=== PATIENT | male | born 1965 | race Caucasian/White ===

== ENCOUNTER 2019-08-02 11:52 | Inpatient (IN) | payer OTHER ==
[~2019-08-02] VITALS: Ht 180.3 cm; Wt 75.3 kg
[2019-08-02 15:04] VITALS: BP 146/80
--- NOTE | 2019-08-02 15:05 | NUR ---
53 YEAR OLD MALE ARRIVES VIA AMBULANCE FROM [facility] IN [facility] WHERE HE HAS BEEN INPT SINCE 07/29 FOR [place] LE CELLULITIS AND HTN. PT REPORTED TO LIVE WITH HIS 95 YEAR OLD FATHER WHOSE HEALTH IS POOR. PER NURSING REPORT PT NOT EATING AT HOME,NOT TAKING MEDS,INCREASED IN HALLUCINATIONS AND WALKING AROUND HOUSE NAKED. DURING ADMIT INTERVIEW IS PACING BACK AND FORTH RAPIDLY IN ROOM-TALKING SOFTLY TO SELF AND DOES STATE "I'M HALLUCINATING-I HEAR VOICES" DENIES PAIN/DISCOMFORT. DENIES SI/SH/HI/. RIGHT LE ASSESSEWD AND IS NOT WARM TO TOUCH OR RED-PURPLISH COLORED SKIN AND 2 PLUS PEDAL EDEMA. PT DOES RESPOND TO QUESTIONS ASKED BUT MANY TIMES WILL STATE "I DON'T KNOW OR I CAN'T REMEMBER" VS OBTAINED. ORIENTED TO ROOM AND UNIT. FOOD/FLUIDS OFFERED/ACCEPTED.
[2019-08-02 20:15] VITALS: BP 135/83
[2019-08-02 20:27] VITALS: BP 135/83
--- NOTE | 2019-08-03 00:03 | NUR ---
PATIENT HAS BEEN IN ROOM MOST OF NIGHT. HE DID COME OUT FOR ICE CREAM FOR HS SNACK. HE HAS BEEN CALM BUT A LITTLE RESTLESS AND PACES IN HIS ROOM. PATIENT DENIES PAIN. NO SI/HI NOTED. NO HALLUCINATIONS OR DELUSIONS NOTED TONIGHT. HE IS CALM AND COOPERATIVE. YELLOW NONSKID SOCKS PLACED ON PATIENT. HE WANTS TO SLEEP IN HIS CLOTHES AND REFUSED GOWN AND SCRUB PANTS. HE IS CONTINENT. BED IN LOW POSITION. PATIENT SLEEPING AT THIS TIME.
--- NOTE | 2019-08-03 08:42 | NUR ---
PT IN DINING ROOM EATING BREAKFAST. PT TOOK MEDS THIS AM WITHOUT ANY ISSUES.
[2019-08-03 08:50] VITALS: BP 177/95
[2019-08-03 09:40] VITALS: BP 177/95
--- NOTE | 2019-08-03 10:30 | NUR ---
PT IN ROOM PACING, ASKED IF HE WAS OK AND NEEDED ANY WATER, PT REFUSED MORE WATER AT THIS TIME.
--- NOTE | 2019-08-03 11:13 | NUR ---
SW called emergency contact and they provided number for pt's dad Danielito Sr. [phone]. Sw completed the intake assessment and TP. Pt's dad stated that they live togther and have for years. He gets housekeeping services every 2 weeks and family helps with meals and transportation. pt does not drive, and is disabled. Pt will need extra services from the [facility], including case management. Dad reported that there is a DEVIL TENDER with [employer].
--- NOTE | 2019-08-03 12:04 | NUR ---
RD consult for weight change. Admit to H unit with hallucinations. Pt had not been eating at home but is now accepting of food and fluids. Spoke with pt about appetite, said it has been fine but he was not hungry for lunch and is tired. Agreed to go to lunch and try eating. Pt reports usual weight of 173, fairly consistent with recorded wt of 175.
--- NOTE | 2019-08-03 14:57 | NUR ---
Sw spoke with intake at the [facility] center [phone] ([phone]. and recomended extensive CM and therapy for d/c needs.
--- NOTE | 2019-08-03 15:57 | NUR ---
PT SITTING OUT IN DINING ROOM. PT TALKING TO SELF. PT STATED HE HERE VOICES AND THEY SAY THEY TELL HIM HE IS EVIL. THIS TRACK ANNOUNCER ASKED WHAT HE SAYS BACK, HE SAYS HE TELLS THEM OFF AND HE GETS IN TROUBLE.
[2019-08-03 19:50] VITALS: BP 137/86
[2019-08-03 20:45] VITALS: BP 137/86
--- NOTE | 2019-08-03 22:13 | NUR ---
PATIENT HAS BEEN IN HIS ROOM TONIGHT AND UP PACING BACK AND FORTH AND TALKING SOFTLY TO HIMSELF. WHEN ASKED WHO HE IS SPEAKING TO, HE RESPONDED, "GOD". I ASKED IF HE IS HEARING VOICES TALKING TO HIM RIGHT NOW. HE STATES THAT THE VOICES ARE SAYING HE IS EVIL. WE TALKED ABOUT HOW TO RESPOND BACK TO THOSE MESSAGES AND TRIED TO DISCUSS WHAT IS REALITY. PATIENT SAYS TALKING ABOUT WAYS TO DEAL WITH THE VOICES HAS HELPED. PT TOOK HIS MEDS WHOLE. DENIES PAIN. NO BM SO FAR TODAY.
--- NOTE | 2019-08-03 22:25 | NUR ---
PATIENT UP PACING ROOM AND TALKING TO HIMSELF AGAIN. HE STATES THAT HIS ROOM MATE'S LIFE IS IN JEPORADY BECAUSE THERE ARE BOMBS ALL AROUND. HE WILL NOT GET IN HIS OWN BED D/T THIS. HE STATES HE SEE'S GOD UP ABOVE AND IS TALKING WITH HIM. HE CAME OUT OF ROOM TO CHECK UNIT MAIN DOORS WHICH WERE LOCKED. I TRIED TO REASSURE HIM AND LET HIM KNOW HE IS SAFE AND THAT NO ONE IS ALLOWED ON OR OFF THE UNIT UNLESS THEY BELONG HERE. PT KEEPS WALKING BACK AND FORTH TO THE DOORS ON THE UNIT AND STANDING AROUND THEM. CALL PLACED TO [facility] AND ORDERS GIVEN FOR ZYPREXA 10MG PO AND/OR IM Q4HR PRN ANXIETY/AGGITATION, AND TRAZADONE 50MG PO AT HS PRN FOR INSOMNIA. MAY REPEAT IN ONE HOUR IF STILL AWAKE. ZYPREXA 10MG PO GIVEN AND TRAZADONE 50MG PO GIVEN. PATIENT WAS CHEEKING HIS MEDS AND KEPT TAKING SMALL SIPS. WAITED WITH PATIENT AND KEPT GIVING HIM SMALL SIPS TILL THEY WERE DOWN. PT IS DROOLING A LITTLE TONIGHT TOO. MONITORING HIS SWALLOWING. PT SITTING UP IN DINING ROOM WITH HIS WATER NOW.
--- NOTE | 2019-08-03 23:23 | NUR ---
ASSISTED PATIENT BACK TO BED. HE'S AFRAID TO SLEEP D/T HE THINKS BOMBS ARE ALL AROUND. FINALLY GOT HIM TO LAY DOWN IN BED SO I COULD LOTION HIS LEGS AND AND THERAPEUTIC MASSAGE ON LOWER LEGS. SOON I LEFT ROOM, PATIENT IS BACK UP AND WALKING THE HALLS. WILL CONTINUE TO MONITOR.
--- NOTE | 2019-08-03 23:34 | NUR ---
PATIENT UNSTEADY ON FEET FROM TRAZADONE AND ZYPREXA. PLACED PATIENT IN A RECLINER WITH PILLOW IN BLANKET AND INCLINED POSITION. PATIENT THANKED ME. SOON I LEFT DINING ROOM PT SAT UP IN RECLINER. HE IS FIDGETING WITH BLANKET. WILL TRY AND GIVE HIM ANOTHER TRAZADONE 50MG IN A FEW MINUTES IF HE WILL TAKE IT. PATIENT IS PARANOID AND STILL THINKING BOMBS ARE ALL AROUND HIS ROOM. HE KEEPS WALKING TO THE EXIT DOORS WHEN HE IS UP PACING. HE LOOKS CALM AND TALKS SOFTLY UNDER HIS BREATH. HE IS NOT COMBATIVE OR AGGRESSIVE.
--- NOTE | 2019-08-04 01:21 | NUR ---
PATIENT HAD TO BE ASSISTED BACK TO RECLINER D/T TRYING TO WALK AND UNSTEADY ON HIS FEET. ORDER FOR HALDOL 5MG IM ONE TIME FROM [facility] OBTAINED AND GIVEN. PT HAD TO BE REMINDED TO SIT IN RECLINER AND NOT GET UP. HE IS SITTING IN IT AND SLEEPING OFF AND ON FOR LAST HOUR. PT NOT WANTING TO GO BACK TO HIS ROOM AT THIS POINT. PATIENT APPEARS RELAXED AND COMFORTABLE. DENIES PAIN. CONTINUING TO MONITOR.
--- NOTE | 2019-08-04 06:34 | NUR ---
PATIENT SLEEPING SOUNDLY IN RECLINER IN DAYROOM STILL AT THIS TIME. PT APPEARS COMFORTABLE AND NO DISTRESS. CONTINUING TO MONITOR FOR SAFETY.
[2019-08-04 09:09] VITALS: BP 152/83
--- NOTE | 2019-08-04 17:00 | NUR ---
0700 ASSUMED CARE OF PATIENT. PATIENT SITTING UP IN CHAIR IN DAYROOM. 0730 PATIENT DENIES NEEDS. NOTICED TREMORS IN HANDS THAT INCREASE WHEN TALKING TO PATIENT. PATIENT COMMUNICATING WELL WITH PEERS. 0915 ASSESSMENT COMPLETED AT THIS TIME PATIENT COOPERATIVE AND EASILY REDIRECTED. PATIENT PACING IN ROOM, NO SI/HI OR AVH, PATIENT STATES NO HALLUCINATIONS TODAY. NO C/O PAIN. MEDICATIONS TAKEN WHOLE WITHOUT DIFFICULTY. WILL CONTINUE TO MONITOR.
--- NOTE | 2019-08-04 18:20 | NUR ---
PATIENT RESTING IN BED. RLE NOTED WITH CELLULITIS AND SWELLING PATIENT STATES "I HAVE HAD IT MANY YEARS". TREMORS TO HANDS NOTED. NO HALLUCINATIONS TODAY.
[2019-08-04 19:48] VITALS: BP 191/165
--- NOTE | 2019-08-05 05:31 | NUR ---
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 HE WAS SITTING QUIETLY IN DAYROOM AT THAT TIME. COOPERATIVE WITH MEDS AND ASSESSMENT PROCESS. LATER NOTED TO BE LYING IN BED TALKING TO SELF. STATED HE IS HEARING VOICES AT THAT TIME TELLING HIM HE'S EVIL. STATES THERE IS SOME RELIEF FRON VOICES WHEN HE IS AROUND MORE PEOPLE. NO PHYSICAL C/O. NO APPARENT DISTRESS. WILL CONTINUE TO MONITOR
[2019-08-05 09:25] VITALS: BP 159/97
[2019-08-05 11:30] VITALS: BP 159/97
--- NOTE | 2019-08-05 12:48 | NUR ---
ASSUMED CARE AT 0700 THIS MORNING. PT. UP FOR MEALS, LIKES TO REST IN HIS ROOM BETWEEN MEALS. HE STATES HE IS HEARING VOICES, SEEING THINGS/PEOPLE, BUT DENIES AVH. HE IS PLEASANT AND COOPERATIVE. HE STATED HE DOES NOT THINK HE SHOULD TAKE A STOOL SOFTNER OR LAXATIVE BECAUSE "I DON'T WANT IT RUNNY". AFFECT SAD, DEPRESSED. CAN SEE HIM TALKING TO THE VOICES. DENIES BEING ABLE TO SLEEP MUCH (HE SLEPT 4.4 HOURS LAST NOC). TOOK HIS MEDICATIONS WITHOUT DIFFICULTY.
--- NOTE | 2019-08-05 14:42 | NUR ---
SW completed a chart review and pt is still struggling with his hallucaintaions but making some positive gains. D/C is still guarded about going home with his aging father. Jorge A called and left a VM with Danielito espinoza.
[2019-08-05 19:43] VITALS: BP 130/50
--- NOTE | 2019-08-06 04:46 | NUR ---
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 HE WAS SITTING IN DAYROOM WITH PEERS. APPEARS TO BE QUITE INTERNALLY PREOCCUPIED. AFFECT FLAT, MOOD DEPRESSED. STATES HE HEARS VOICES TELLING HIM HE IS IN HELL AND SEES PHANTOMS AND DEMONS.HAS BEEN PACING SOME DURING THE NIGHT. WHEN HE DOES SIT STILL, IS TALKING ANGRILY TO A/H. SLEPT VERY LITTLE, IF ANY. RECIEVED TRAZADONE 100MG X2 WITH NO APPARENT EFFECT.TOOK MEDS WITHOUT DIFFICULTY. COOPERATIVE WITH ASSESSMENT PROCESS. QUITE TIAGO WHEN DESCRIBING SX OF PSYCHOSIS. WILL CONTINUE TO MONITOR
[2019-08-06 09:50] VITALS: BP 169/94
[2019-08-06 13:21] VITALS: BP 169/94
--- NOTE | 2019-08-06 13:34 | NUR ---
ASSUMED CARE AT 0700 THIS MORNING. PT. SECLUSIVE IN HIS ROOM. HE COMES OUT FOR MEALS AND GROUPS BUT IN HIS ROOM AT OTHER TIMES. HE IS PLEASANT TO STAFF. HE STATES HE CONTINUES TO HAVE AVH. HE DENIES THAT THE VOICES HAVE A VIOLENT TONE BUT ARE FRIENDLY AT THIS TIME SO HE DOES NOT MIND THEM. THE TOOK HIS MEDICATION WITHOUT DIFFICULTY. THIS MIXER OPERATOR STAYED IN THE VACINITY THE PT. AFTER MEDS WERE GIVEN SO HE COULD NOT CHEEK HIS MEDICATIONS. HE NEEDS A SHOWER BUT REFUSES TO DO SO WHEN STAFF ATTEMPTS TO ASK HIM TO TAKE ONE. HE IS VERY RESISTIVE WHEN APPROACHED BY STAFF.
[2019-08-06 19:30] VITALS: BP 147/83
--- NOTE | 2019-08-06 23:23 | NUR ---
Care assumed of patient at 1915: Patient seated in dayroom at start of shift. Patient presents with blunted affect. Alert and oriented x3, disoriented on current time. Did know to look at the board to read what the date is. Patient has tremors to lower jaw/chin area but not to the bilateral upper and lower extremities. Patient denies pain or discomfort. Denies SI/HI. Does report that he is hearing voices who he calls "the devil". Patient observed sitting and mumbling to self. Not able to distinguish what he is saying. When approached, patient states he is telling "him" to go away. Patient took HS medication whole. Appears that patient has some difficulty swallowing his medications or is tucking them in his cheek. Patient was able to swallow them with several drinks of water and encouragement. Patient isolated self and appears withdrawn. Answers simple yes/no questions appropriately. Patient started to appear tired and was falling asleep in his chair. Patient encouraged and walked to his room to go to bed. Patient was able to fall to sleep rather quickly and has been resting quietly.
--- NOTE | 2019-08-07 08:22 | NUR ---
PT SITTING OUT IN DINING ROOM FOR BREAKFAST. PT SEEMS SLEEPY, AWAKEN WITH VERBAL STIMULI. PT STATED HE FEELS BETTER, NOT HEARING VOICES AT THIS TIME. NO TREMORS NOTED AT THIS TIME OR SIGNS OF ANXIETY.
[2019-08-07 08:40] VITALS: BP 142/84
[2019-08-07 09:12] VITALS: BP 142/84
--- NOTE | 2019-08-07 13:06 | NUR ---
SW called pt's DPOA and left a VM. SW completed chart review and pt is making so gains. Will still plan for a d/c next week.
--- NOTE | 2019-08-07 18:00 | NUR ---
PT HAS HAD A GOOD DAY. DID NOT NOTICE ANY ISSUES WITH PT TALKING TO SELF. PT HAS ATTENED GROUPS TODAY.
[2019-08-07 20:54] VITALS: BP 183/92
[2019-08-07 22:06] VITALS: BP 150/90
--- NOTE | 2019-08-07 22:38 | NUR ---
1850 RESUMMED CARE FROM DAY SHIFT, PATIENT WAS IN ROOM SLEEPING AT START OF SHIFT. PATIENT TOOK MEDICATION WITHOUT INCIDENCE, PATIENT HAS TREMORS HANDS AND LEGS. PATIENT WENT BACK TO SLEEP IN ROOM, WILL CONTINUE TO MONITOR PATIENT FOR BEHAVIORS AND SAFETY.
[2019-08-08 07:40] VITALS: BP 189/91
[2019-08-08 08:30] VITALS: BP 189/91
--- NOTE | 2019-08-08 09:14 | NUR ---
PT TOOK MEDS THIS AM WITHOUT ANY ISSUES. PT MUMBLING TO SELF SOFTLY, PT DENIES ANY PAIN. PT LUNGS CLEAR. PT UP AD CARMEL.
--- NOTE | 2019-08-08 12:39 | NUR ---
Date of Admission: 08/02/19 Date of Activity Therapy Assessment:08/04/19 Activity Goal:Time management and leisure awareness Initial Goal: Two RT groups per day Weekly progress towards goal:Did not achieve Group participation level: Minimal/Passive Behaviors observed: Pt has been seen responding to internal stimuli. Pt has been mumbling and talking to self. Pt often sits passively in groups but does participate at times. Pt has a flat affect and has little interaction with peers and staff. Sometimes seen sleeping during groups. Plan: No change towards goal
--- NOTE | 2019-08-08 15:07 | NUR ---
Jorge A spoke with pt's father and reported that d/c would be coming up wthis week and that pt will need to go the [facility] for increased services. JORGE A also educated jamaal espinoza that pt will need increased cares and supervision and that guardianship should be considered sooner than too late. Jamaal espinoza seemed to understand and will be pursuing this.Jorge A then spoke with the pt after group and disucssed the need for him to ask for and follow up with his appt at the [facility] to avoid readmission to the hospital and he admitted that he would be compliant with the d/c recommendations and that he will need someone to help make decisions when his dad cannot.
--- NOTE | 2019-08-08 18:39 | NUR ---
PT SITTING OUT IN DINNING ROOM. PT ATE WELL FOR DINNER. PT DOES HAVE SOME MOVEMENTS TO LOWER LIP.
[2019-08-08 19:56] VITALS: BP 171/101
[2019-08-08 21:00] VITALS: BP 164/86
--- NOTE | 2019-08-09 02:10 | NUR ---
PATIENT HAS BEEN CALM AND COOPERATIVE TONIGHT. HE DENIES SI/HI/AVH. HE SAT OUT IN DINING ROOM AT A TABLE WITH HIS ROOMMATE AND HAD ICECREAM FOR HIS HS SNACK BEFORE RETIRING TO BED. HE AMBULATES WELL ON HIS OWN. HIS TREMORS IN HIS HANDS ARE VERY SLIGHT TONIGHT. HE APPEARS CALM AND RELAXED. HE IS INDEPENDENT WITH USING THE RESTROOM. PATIENT STATES HE HAD BM TODAY. PATIENT HAS BEEN SLEEPING SINCE 0. BED IN LOW POSITION AND MONITORING HIM FOR SAFETY.
[2019-08-09 09:09] VITALS: BP 166/98
[2019-08-09 10:35] VITALS: BP 96/49
--- NOTE | 2019-08-09 11:33 | NUR ---
1130 RESUMMED CARE FROM OVERNIGHT SHIFT AT 0648, PATIENT IN DAY ROOM QUIET AND ISOLATIVE. PATIENT ATE BREAKFAST AND TOOK MEDICATION WITHOUT INCIDENCE. PATIENT ENCOURAGED TO PARTICIPATE MORE AND TRY TO INTERACT MORE. PATIENT COOPERATIVE CALM DENIES SI/HI AT PRESENT. WILL CONTINUE TO MONITOR PATIENT FOR SAFETY AND BEHAVIORS.
[2019-08-09 14:16] LABS: HEMATOCRIT 45.3 % (42.0-52.0); MCHC 33.2 g/dL (28.0-37.0); MCV 90.3 fL (80.0-100.0); RBC 5.01 mil/uL (4.50-6.00); RDW 13.5 % (10.5-14.5); WBC 6.6 thou/uL (4.0-11.0)
[2019-08-09 14:30] LABS: CALCIUM 8.8 mg/dL (8.5-10.1); CREATININE 1.2 mg/dL (0.7-1.3); POTASSIUM 4.1 mmol/L (3.5-5.1); TOTAL BILIRUBIN 0.5 mg/dL (<0.1-1.0); TOTAL PROTEIN 7.8 g/dL (6.4-8.2)
[2019-08-09 20:25] VITALS: BP 176/101
--- NOTE | 2019-08-10 04:29 | NUR ---
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 HE WAS SITTING IN DAYROOM WITH PEERS WITH NO INTERACTION. DENIES PSYCHOSIS AT THIS TIME, BUT IS NOTED RESPONDING TO INTERNAL STIMULI, SPEAKING TO SELF. AFFECT BLUNTED, MOOD DEPRESSED. PLEASANT AND COOPERATIVE WITH ASSESSMENT PROCESS AND MEDS. NO APPARENT PHYSICAL DISTRESS. NO C/O. WILL CONTINUE TO MONITOR
[2019-08-10 05:26] VITALS: BP 139/77
--- NOTE | 2019-08-10 05:28 | NUR ---
PATIENT BP WAS 174/96 DURING THE EVENING SHIFT. RECENT FOLLOW UP CHECK WAS 139/77 FOLLOWING 1X DOSE OF CLONIDINE 0.1MG ORDERED BY DR DANIELS
[2019-08-10 07:35] VITALS: BP 149/88
[2019-08-10 08:34] VITALS: BP 138/83
--- NOTE | 2019-08-10 08:44 | NUR ---
RANDALL called pt's AGNIESZKA Esteves sr and reported to him that d/c was today and that we would be transporting pt by cab to home at 2pm. RANDALL faxed the d/c packet to the [facility] [phone].
[2019-08-10] MEDS ORDERED: COLACE 100 MG100 MG PO (11:16)
[2019-08-10] MEDS ORDERED: SEROQUEL 100 M100 M1 PO ×2 (11:16→12:16)
[2019-08-10] MEDS ORDERED: BENZTROPINE MES1 MG PO (11:16)
[2019-08-10] MEDS ORDERED: TRAZODONE HCL100 MG PO (11:16)
[2019-08-10] MEDS ORDERED: REQUIP 1 MG TABL1 M1 PO (11:16)
[2019-08-10 11:45] VITALS: BP 138/83
--- NOTE | 2019-08-10 12:02 | NUR ---
JORGE A cancelled the taxi, after spekaing with Jesse Blevins- friend listed on the face sheet. He stated that he would come and strip picker this pt today at 3pm and would be bringing Danielito ELIZONDO. Jorge A reported this to nursing and Dr Sanchez.
[2019-08-10] MEDS ORDERED: CARDIZEM CD120 MG PO (12:12)
[2019-08-10 12:50] VITALS: BP 138/83
--- NOTE | 2019-08-10 15:36 | NUR ---
ASSUMED CARE AT 0700 THIS MORNING. PT. STABLE. HE CONTINUES TO STATE HE IS STILL HEARING VOICES BUT DENIES PROBLEMS WITH IT. HE STAYES IN HIS ROOM BETWEEN MEALS AND GROUPS. HE GOT DRESSED AND ALL HIS BELONGINGS WAS GATHERED. ALL HIS BELONGINGS WAS TAKEN, HIS SCRIPTS, DISCHARGE PAPERS, BELONGINGS WERE ALL GATHERED. PT. LEFT WITH FRIEND IN A CAR TO GO HOME.
--- NOTE | 2019-08-12 11:22 | EKG ---
[facility] [place] [address] ELECTROCARDIOGRAM REPORT Name: ROSS LOPEZ Room #: [address] [place] [address] [place] M.R.#: [id number] Admission: 08/02/19 Attend Phys: Gabriela Sanchez MD Discharge: 08/10/19 Date of : 61 Report #: [id number] THIS REPORT FOR: cc: FAM - Family physician unknown FAM - Family physician unknown Camron Nash MD ~ THIS REPORT FOR: //name// [facility] Test Date: 2019-08-09 Test Time: 16:36:04 Pat Name: ROSS LOPEZ Department: Room: [facility] A Gender: M [employer] Leasing Sales Representative: Whit SCHOFIELD : 1965 Requested By: Gabriela Sanchez Order Number: [id number] MD: Camron Nash Measurements Intervals [place] Rate: 86 P: 53 ND: 132 QRS: 19 QRSD: 89 T: 13 QT: 357 QTc: 427 Interpretive Statements Sinus rhythm No previous ECG available for comparison Electronically Signed On 08-09-2019 16:55:27 BARREL PLATER by Camron Nash [email or web address] <ELECTRONICALLY SIGNED> By: Camron Nash MD [id number] Camron Nash MD /SHARRON
== END 2019-08-10 16:10 | disposition home or self-care (01) | DRG 885 ==
LOC: SBH
PROVIDERS: Psychiatry & Neurology Psychiatry; ADMIT Psychiatry & Neurology Psychiatry
DX: F20.9 Schizophrenia, unspecified (principal); R45.851 Suicidal ideations; I10 Essential (primary) hypertension; I87.2 Venous insufficiency (chronic) (peripheral); G31.84 Mild cognitive impairment of uncertain or unknown etiology; Z79.899 Other long term (current) drug therapy
CPT/HCPCS: 10880

== ENCOUNTER 2020-01-13 23:03 | Inpatient (IN) | payer OTHER ==
[~2020-01-13] VITALS: Ht 180.3 cm; Wt 71.3 kg
[~2020-01-13 23:03] MED LIST: BENZTROPINE MES1 MG PO; CARDIZEM CD120 MG PO; COLACE 100 MG100 MG PO; REQUIP 1 MG TABL1 M1 PO; SEROQUEL 100 M100 M1 PO; TRAZODONE HCL100 MG PO
[2020-01-14 02:25] VITALS: BP 157/106
--- NOTE | 2020-01-14 04:24 | NUR ---
Pt admitted to rm 518 B from [facility]. Pt lives at home with his aged dad. Report obtained from Lola ([facility] RN). Per Lola, pt reported that ativan which he recieved in the ER helps in silencing voices. Pt alert and oriented x4, voiced having some short term memory problems. VSS obtained. BP high, pt voiced high bp being his norm. Pt admitted with schizophrenia. Pt agreed to auditory hallucination. Voices telling him that "he is evil". Pt voiced his way of dealing with voices is to try to block them out. Pt is alert and oriented, ambulates independently. Pt agrees to having depression and occassional feeling of hopelessness. Pt voiced being previously admitted to [facility] in August 2019. Tremors noted. Pt has edema to BLE, right > left. Pt also has discoloration to RLL. Pt voiced lossing about 30lb since the last 3 months, voicing that he sometimes "forgets to eat". Pt admits to falling x1 in the past 3 months, slipped coming off of his bed. Pt however, does not flag as a fall risk at this time. Pt does not have a DPOA. Consents signed by pt. Dontrell NUNEZ contacted for admission orders. Home meds restarted by dontrell NUNEZ. Pt currently in bed sleeping. Will continue to monitor.
[2020-01-14 07:40] VITALS: BP 169/106
[2020-01-14 10:02] VITALS: BP 169/106
--- NOTE | 2020-01-14 15:47 | NUR ---
PATIENT WAS UP SITTING IN DAYROOM WHEN CARE ASSUMED. HE IS ALERT, AND ORIENTED X 3-4, ABLE TO MAKE NEED KNOWN. PATIENT AMBULATES WITH STEADY GAIT. PATIENT TOOK MORNING MEDICATION WHOLE WITHOUT DIFFICULTY. PATIENT IS EATING MEALS, AND DRINKING FLUID WELL. PATIENT DENIES SUICIDAL/HOMICIDAL IDEATION, HE DENIES ANXIETY, DEPRESSION RATED 5/10. PATIENT STATES HIS PROBLEM IS "THE VOICES, TEKLLING ME TO CRY, AM AN EVIL MAN, I WILL NEVER GET TO GO HOME, NEVER SEE MY FATHER". PATIENT REDIRECTED THAT VOICES ARE NOT REAL. "I KNOW, BUT THEY ARE REALLY STRONG". PATIENT DENIES HAVING PHYSICAL PAIN. PATIENT PARTICIPATING IN GROUP THERAPY. NO SIGN ACUTE DISTRESS NOTED AT THIS TIME. AFFECT IS FLAT, AND BLUNTED, MOOD IS CALM. NO SIGN OF ACUTE DISTRESS NOTED AT THIS TIME, WILL MONITOR FOR SAFETY.
--- NOTE | 2020-01-14 16:33 | NUR ---
Sw met with pt with Dr juan and completed the intake assessment and TP. Pt will be going back to home with oupt services at the [facility]
[2020-01-14 19:30] VITALS: BP 168/96
--- NOTE | 2020-01-15 03:59 | NUR ---
Assumed care of pt @ 1900. Pt calm et cooperative with pleasant demeanor this shift. Took medications whole without difficulty. Unable to assess ambulation as pt isolated in room in bed all of shift. VSWNL. Health assessment with no abnormalities noted at present time. Denies SI/HI at present time. Currently resting in bed with eyes closed. Will continue to monitor per protocol.
[2020-01-15 07:09] LABS: CALCIUM 8.6 mg/dL (8.5-10.1); POTASSIUM 4.4 mmol/L (3.5-5.1)
[2020-01-15 08:10] VITALS: BP 155/99
[2020-01-15 09:12] VITALS: BP 181/78
--- NOTE | 2020-01-15 09:16 | NUR ---
PT SITTING IN DINING ROOM. PT HAS ARMS FOLDED ACROSS CHEST. PT HAS HYPOACTIVE BOWEL SOUNDS. PT STATED HE HAD BM TODAY. PT LUNGS CLEAR. PT TOOK MEDS WHOLE. PT STATED HE DOES HAVE AUDITORY HALLUCINATIONS THAT SAY HE IS EVIL. REASURED PT THAT HE IS NOT EVIL, TO TALK TO NURSING STAFF WITH ANY CONCERNS.
--- NOTE | 2020-01-15 16:01 | NUR ---
PT GOING OUT TO EAT MEALS. PT DIDN'T PARTICIPATE IN AFTERNOON GROUP.
[2020-01-15 21:33] VITALS: BP 152/87
--- NOTE | 2020-01-15 21:53 | H ---
[facility] [place] [address] HISTORY AND PHYSICAL Name: ROSS LOPEZ Room #: 518B-B ADM IN M.R.#: [id number] Admission: 01/14/20 Attend Phys: Kash Parker DO Discharge: Date of : 61 Report #: [id number] THIS REPORT FOR: cc: MADHURI - No family physician/PCP FAM - No family physician/PCP Kash Parker DO ~ CC: Kash DHALIWAL physician/PCP DATE OF SERVICE: 01/14/2020 INPATIENT PSYCHIATRIC EVALUATION ATTENDING PHYSICIAN: Kash Parker DO. ARCHIVES TECHNICIAN: Tristan Carter MD. REASON FOR ADMISSION: He was medically cleared in the [facility] ER in [place] for hearing voices, worsening psychosis. SOURCES OF INFORMATION: Records from [facility], past records from hospitalizations here in early 2019, interview with the patient. HISTORY OF PRESENT ILLNESS: This is a 54-year-old male who has had several psychiatric admissions earlier this year at [facility] under Dr. Sanchez, reportedly also in the interval since [place] admission he had one at [facility] in [place], [place] and now here again at [facility], he reports that he stopped going to his psychiatric appointments and cannot give me a great reason for that. He reports he hears voices telling him that are demonic in nature, one recently telling him to kill himself, unspecified method. He has a long history of schizophrenia, dating back to 1997 or so. 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 He has a friend, Jesse Sprague, who may be his DPOA, , primary care physician is Ozzie Munoz. Psychiatric provider is Quintin Gould who I did speak with at the [facility], . PAST MEDICAL HISTORY: Includes diabetes mellitus, hypertension, hyperlipidemia. Ativan helps silence the voices, but not completely. Records from the [facility]; of note, the patient had a long stay there at least 20 hours due to COVID test not being returned, need for urinalysis, urine drug screen and acute kidney injury. When he presented there late on 01/12/2020, he was a 54-year-old male, hearing voices, want some help, they are telling him to go outside naked. He has had similar presentation in 08/2019 when he was sent to [place]. He denies other complaints. [address] [address] HISTORY AND PHYSICAL Name: ROSS LOPEZ JR Room #: 518B-B ADM IN M.R.#: [id number] Admission: 01/14/20 Attend Phys: Kash Parker DO Discharge: Date of : 61 Report #: [id number] REVIEW OF SYSTEMS: From the ER: CONSTITUTIONAL: Denies fever or chills. EYES: Denies change in visual acuity. MUSCULOSKELETAL: Denies back pain or joint pain. INTEGUMENTARY: Denies rash. NEUROLOGIC: Denies headache, focal weakness or sensory changes. ENDOCRINE: Denies polyuria or polydipsia. He was seen by Dr. Ko Kinsey in the ER. CURRENT MEDICATIONS: Olanzapine, looks like he just got 10 mg in the ER. His last known long-acting injection was Invega Sustenna 156 mg at the 08/27 of this year. His physical exam was grossly normal. Laboratories in there, white blood cell count 9.0, H and H 13.1 and 38.4%, platelet count 223. Sodium 138, potassium 3.5, chloride 101, bicarbonate 25, anion gap 12, BUN 30, creatinine 1.6, estimated GFR 44.9, glucose 136, calcium 8.6, magnesium 2.1, total bilirubin 0.7, AST 15, ALT 7, alkaline phosphatase 82, total protein 7.0, albumin 3.4. Salicylate less than 2.8, acetaminophen less than 2. Alcohol level less than 10. EKG showed a QT interval, which is 441 and sinus rhythm. Looks like the rest I have here is nursing assessment. Urinalysis was negative. Urine drug screen was negative. COVID test was not detected, will be doing a BMP to follow up on and eventually sent by Dr. Guardado over there. Interestingly, says in ER notes from [facility] did start "having hallucinations" Ativan 1 mg p.o. ordered, so they gave him benzodiazepine in the Emergency Room. From Dr. Sanchez's H and P on the . PSYCHIATRIC HISTORY: Mental illness since 1997, outpatient treatment at [facility] under Quintin GONZALEZ. Back in June he was taking Seroquel 150 mg daily and Invega injection monthly. ALLERGIES: No known allergies. He has had cellulitis of the right foot, elevated BP. SOCIAL HISTORY: Denied smoking, alcohol, tobacco or drug use. FAMILY HISTORY: Denies psychiatric history. Denies family medical history. [facility] [address] [place] [address] HISTORY AND PHYSICAL Name: ROSS LOPEZ JR Room #: 518B-B ADM IN Sara.#: [id number] Admission: 01/14/20 Attend Phys: Kash Parker DO Discharge: Date of : 61 Report #: [id number] EDUCATIONAL HISTORY: High school +2 years of college. Born in [place], raised in [place], reports he has several brothers. Denied history of physical, sexual, or emotional abuse. Vital signs today on the [facility], temperature 36.9, pulse 101, respirations 18, BP 169/106, I hope that has come down, so I am going to double check that in a different part of the chart here, looks like it has not, so get that promptly retaken. PHYSICAL EXAMINATION: Normal gait and station. MENTAL STATUS EXAMINATION: Well-developed, well-nourished, disheveled, malodorous male. Attention fair. Concentration fair. Speech slow, monotone. Thought process is linear and goal directed. Thought content focused on the present. No psychomotor agitation. No psychomotor retardation. Denied suicidal or homicidal ideations, currently endorses some intermittent auditory hallucinations. Denied visual, denied tactile hallucinations. Memory not formally tested. Insight limited. Judgment limited. Fund of knowledge below average. FORMULATION: A 54-year-old male sent over from [facility] with history of schizophrenia, decompensated with command hallucinations to end his life. DIAGNOSIS: Schizophrenia, chronic with acute exacerbation and noncompliance. Medical problems include restless leg syndrome, hypertension. PLAN: Evaluate, stabilize, obtain collateral. Regarding his medications, we will give him trazodone 100 mg p.o. at bedtime for sleep, Requip will decrease from 0.5 to 0.25 mg at bedtime. I was initially goign to start Seroquel XR 300 mg. Given the option of him doing well based on information of Mr. Gould, we will restart him on Risperidone 1 mg twice a day today and advance 2 mg twice per day be dend of weekend. Continue diltiazem 240 mg p.o. daily. Monitor blood pressure. He has Haldol 2.5 mg p.o. q. 4 p.r.n., docusate sodium 100 mg p.o. b.i.d. p.r.n. for constipation. His Cogentin was discontinued, otherwise house PRNs. Our goal will be to get him back to the community setting. He lives with his father and has wrapper caser but claims he has not been in contact with this person. ESTIMATED LENGTH OF STAY: 7-10 days, hopefully early next week we will get him go on with Invega Tanisha with a loading dose and a followup dose and proceed from there. STRENGTHS: He is insured, has a wrapper caser, psychiatric provider. [address] [address] HISTORY AND PHYSICAL Name: ROSS LOPEZ Room #: 518B-B ADM IN M.R.#: [id number] Admission: 01/14/20 Attend Phys: Kash Parker DO Discharge: Date of : 61 Report #: [id number] WEAKNESSES: Noncompliance, chronic mental illness, hopefully get a shower here in the next 24 hours. Time spent on interview, review of records, coordination of care, discussion with the patient, approximately 60 minutes. <ELECTRONICALLY SIGNED> By: Kash Parker DO 01/15/20 [id number] Kash Parker DO /nt
--- NOTE | 2020-01-15 22:22 | NUR ---
2210 RESUMMED CARE FROM DAY SHIFT THIS AM, PATIENT IN ROOM LYING QUIET. PATIENT IS ALERT AND ORIENTED TIMES 3 PATIENT DENIES SI/HI/VH BUT HAS AH AT TIMES. PATIENTS ABDOMEN SOFT ROUND BOWEL SOUNDS PRESENT LUNGS CLEAR, PATIENT AFFECT IF FLAT. PATIENT LIKES TO ISOLATE IN ROOM TAKES MEDICATION WITHOUT INCIDENCE. WILL CONTINUE TO MONITOR PATIENT FOR BEHAVIORS AND SAFETY.
--- NOTE | 2020-01-16 00:26 | NUR ---
ASSUMED CARE OF PATIENT AT APPROXIMATELY 0015, PATIENT OBSERVED IN BED WITH EYES CLOSED, RR EVEN AND UNLABORED AND NO S/S OF DISTRESS. NURSING WILL MAINTAIN Q12 CHECKS TO ENSURE SAFETY AT ALL TIMES.
[2020-01-16 07:41] VITALS: BP 136/75
[2020-01-16 08:10] VITALS: BP 136/75
--- NOTE | 2020-01-16 08:27 | NUR ---
PT SITTING IN DINING ROOM. PT DENIES ANY PAIN. PT UP AD CARMEL. PT AUDITORY HALLUCINATION STATING HE IS BAD. TOLD PT HE HAS A PRN FOR ANXIETY IF HE NEEDS IT. HE STATED OK. PT USUALLY EATS AND GOES BACK TO ROOM. PT DOESN'T COMMUNICATE WITH OTHER INDIVIDUALS, HE MOSTLY KEEPS TO HIMSELF.
--- NOTE | 2020-01-16 08:30 | NUR ---
PT DID TAKE MEDS WITHOUT ANY ISSUES.
--- NOTE | 2020-01-16 13:38 | NUR ---
PT STATED HE DIDN'T FEEL GOOD. PT STATED HE IS HEARING VOICES AND TELLING HIM TO TAKE OFF HIS CLOTHES. ADM HALDOL 2.5MG PO.
--- NOTE | 2020-01-16 14:37 | NUR ---
CALLED AROLDO DON FOR INCREASE IN HALDOL FOR HALLUCINATIONS. PT STATED IT DIDN'T HELP.
--- NOTE | 2020-01-16 15:30 | NUR ---
PT LAYING DOWN AWAKE. PT DID TAKE A SHOWER. ADM HALDOL 5MG PO FOR HEARING VOICES TO TAKE OFF HIS CLOTHES. PT WAS VERY ANXIOUS BEFORE AND WANTED THE NURSE TO HURRY WITH THE PRN AFTER TALKING TO AROLDO DON.
--- NOTE | 2020-01-16 17:00 | NUR ---
PT EATING DINNER. PT SEEMS MORE TIRED WITH EYES DROOPY.
--- NOTE | 2020-01-16 18:07 | NUR ---
PT STATED THAT THE HALLUCINATIONS ARE WORSE SINCE HE ATE. STATED THAT WHEN HIS NEXT DOSE IS DUE WE WILL GIVE THAT, HE STATED OK.
[2020-01-16 20:33] VITALS: BP 153/85
[2020-01-16 22:05] VITALS: BP 153/85
--- NOTE | 2020-01-17 01:27 | NUR ---
Assumed care of patient this pm shift. Patient was having a lot of difficulty with anxiety and hearing voices that would tell him to disrobe. Patient stated that the voices are evil. Patients affect is flat. Patient is alert and oriented to person, place, and knows who the president is. Patient requested haldol to slow the voices. Patient was also given trazadone for sleep. Patient did eventually go to sleep. Patients assessment shows no signs of acute distress. Patients breath sounds are clear, bowel sounds present, and s1 s2 heard with auscultation. Patient denies pain. Patient takes medications whole with thin fluids and is medication adherent. Patient is ambulatory and has a steady gait. We will continue to monitor per hospital protocol.
[2020-01-17 08:52] VITALS: BP 162/95
[2020-01-17 09:23] VITALS: BP 162/95
--- NOTE | 2020-01-17 15:32 | NUR ---
WITHDRAWN TO ROOM FOR MAJORITY OF SHIFT-DOES COME OUT BRIEFLY FOR MEALS AND GROUPS BUT RETURNS IMMEDIATLY TO ROOM. FLAT AFFECT. DELAYED VERBAL RESPONSES. CONTINUES TO REPORT HEARING VOICES AND THEY ARE NEGATIVE TELL HIM HE IS NO GOOD BUT DENIES COMMAND HALLUCINATIONS. GAIT STEADY. APPETITE GOOD.
--- NOTE | 2020-01-17 15:59 | NUR ---
SW recieved a call from [employer] [facility] offering assistance with d/c planning. [phone] or [phone] X [phone]
[2020-01-17 19:41] VITALS: BP 153/88
--- NOTE | 2020-01-17 23:57 | NUR ---
Pt alert and oriented x4. Calm and Cooperative. Pt was in his bed sleeping at time of assessment. Pt denies SI/HI. Pt agrees to , voices telling him that he is evil. Pt took meds whole. Pt denies pain this shift. Pt currently in his bed sleeping. Will continue to monitor.
[2020-01-18 07:42] VITALS: BP 159/95
--- NOTE | 2020-01-18 10:42 | NUR ---
HAS REMAINED WITHDRAWN TO ROOM SO FAR THIS AM. REFUSING GROUPS DESPITE PROMPTING/QUEING. WHEN IN ROOM NOTED TO BE MOANING LOUDLY AND AT ONE POINT BEGAN TO YELL "GET OUT-GET OUT" REPORTS INCREASED AUDITORY HALLUICINATIONS HEARING MENS VOICES YELLING AT HIM AND MOCKING HIM. HALDOL 5MG GIVEN PO PRN GOR ABOVE NOYEF. BP MILDLY ELEVATED THIS AMA T 159/95-RECHECK AFTER AM BP MEDS 140/84. GAIT STEADY WITHOUT ASSISTVE DEVICES. DENIES SI/SH/HI. DENIES PHYSICAL PAIN.
--- NOTE | 2020-01-18 16:09 | NUR ---
Pt was invited to evi be declined because he wanted to lay down
[2020-01-18 19:11] VITALS: BP 163/96
--- NOTE | 2020-01-19 02:22 | NUR ---
Pt alert and oriented. Pt was cooperative with assessment. Pt agreed to auditory hallucinations, voices telling him he is evil. Pt denies SI/HI. Pt took meds whole. Pt came out to sleep in the day room after a patient was admitted as his roommate. Pt able to go void in his room and come out to lay in in the dayroom on a morgan chair. Will continue to monitor.
[2020-01-19 07:49] VITALS: BP 105/77
--- NOTE | 2020-01-19 11:41 | NUR ---
PATIENT IS HAVING AUDITORY HALLUCINATION. STIPPING, AND COMNG OUT OF ROOM NAKED, WHEN REDIRECTED BACK TO ROOM, AND ADVISED TO PUT ON CLOTHS, AND THAT STRIPPING NAKED IS INAPPROPRIATE, PATIENT STATES THE VOICES ARE TELLING HIM TO STRIP NAKED. PRN HALDOL GIVEN, WILL MONITOR EFFECTIVENESS.
[2020-01-19 12:19] VITALS: BP 158/83
--- NOTE | 2020-01-19 19:18 | NUR ---
CARE OF PATIENT ASSUMED AT 1915. PATIENT IS SITTING IN DAY ROOM. CALM AND COOPERATIVE WITH ASSESSMENT. ENDORSES ONGOING COMMAND AH THAT TELL HIM TO STRIP NAKED AND CALL HIM EVIL. PATIENT IS A/O X 4. HAS VISIBLE JAW MOVEMENT INDICATIVE OF EPS [facility] PATIENT REPORTS HE HAS BEEN EXPERIENCING FOR QUITE SOME TIME. COMPLIANT WITH HS MEDS. DOZES ON/OFF IN A RECLINER IN THE DAY ROOM.
[2020-01-19 19:53] VITALS: BP 151/76
[2020-01-20 07:25] VITALS: BP 155/89
[2020-01-20 09:25] VITALS: BP 15/89
--- NOTE | 2020-01-20 10:25 | NUR ---
1015 RESUMMED CARE FROM OVERNIGHT THIS AM, PATIENT IN HIS ROOM LYING QUIET. PATIENT STATES HE STILL HAS AH STATING THAT HE IS EVIL. PATIENT DENIES SI/HI/VH AT PRESENT. PATIENTS ABDOMEN SOFT ROUND BOWEL SOUNDS PRESENT, LUNGS CLEAR. PATIENT QUIET COOPERATIVE JUST WANTS TO ISOLATE IN ROOM, PATIENT DOES NOT INTERACT VERY MUCH. WILL CONTINUE TO MONITOR PATIENT FOR BEHAVIORS AND SAFETY.
--- NOTE | 2020-01-20 10:30 | NUR ---
MET WITH PATIENT WHO ADMITTED WITH STROKE. PATIENT REPORTS LIVES IN INDEPENDENT HOME WITH AND 2 ADULT AGE CHILDREN. HE HAS A 3RD ADULT CHILD WHO IS RETURNING TO [place] FROM [place] THIS WEEK. [employer]ER INDEPENDENT WITH ADLS AND WORKING FROM HOME. PATIENT REPORTS SUPPORTIVE FAMILY. HE IS VERY INTERESTED IN ACUTE REHAB HE IS MOTIVATED TO WORK WITH THERAPY AND RETURN TO WORK. 5N EVALED AND IN PROCESS OF AUTH. PATIENT AGREEABLE TO 5N STAY.
--- NOTE | 2020-01-20 19:18 | NUR ---
Care of patient assumed at 1915. Patient is sitting in day room at a table. A/O x 4. Cooperative with assessment. HS, LS, BS all WNL. Patient reports concern of feeling like he has to move all of the time, making it hard to sit still for very long. Patient denies SI/HI. Continues to endorse AH, stating that it is an average day dealing with the voices. Compliant with meds. Shortly after meds, patient comes to the nurse's station stating "I don't belong here. I'm evil. I'm the devil.". This nurse assures patient that this is not the case, and encourages patient to seek me out if the voices become overwhelming. Patient agrees to do this. At midnight patient still has not complained more about voices.
[2020-01-20 19:38] VITALS: BP 134/75
[2020-01-21 07:24] VITALS: BP 150/86
[2020-01-21 08:10] VITALS: BP 150/86
--- NOTE | 2020-01-21 08:21 | NUR ---
PT EATING BREAKFAST THIS AM. PT STATED VOICES ARE BETTER TODAY. LET PT KNOW ABOUT PRN HALDOL IF HE NEEDED, PT DECLINED. PT LUNGS CLEAR. PT UP AD CARMEL. PT TOOK MEDS WITHOUT ANY ISSUES.
--- NOTE | 2020-01-21 12:45 | NUR ---
RANDALL called Danielito Gomez snr, to report that pt will be discharging on Friday at 11:30 am. He is satisfied wiht this outcome. RANDALL also called the family jeffry mayes to report the d/c. RANDALL set up transportation with taxi voucher for Friday.
--- NOTE | 2020-01-21 13:03 | NUR ---
Sw also called [facility] and set up an appt with Dr Gould on 02/03 at 11:40 am. This inforamtion is provdied to the pt on a handout and in his d/c summary. This will also be faxed to the [facility] [phone]. Intake at the [facility] stated that they will pass this information along in an internal email to his binder caser and request they intiate CM services as soon as pt is discharged.
--- NOTE | 2020-01-21 18:55 | NUR ---
PT HAS DENIED ANY INCREASED IN AUDITORY HALLUCINATIONS. PT HAS BEEN OUT TO DINING ROOM FOR MEALS AND GROUP.
--- NOTE | 2020-01-21 19:18 | NUR ---
Care of patient assumed at 1915. Patient is sitting in day room watching TV. Pleasant and cooperative upon approach. A/O x 4. Denies SI/HI. Does endorse continued command AH. This nurse talks with patient about possible side effects of medications and the pros and cons of requesting an increased dose of Risperdal. Patient reports that side effects have decreased since cogentin was started, and that he is amenable to an increase in Risperdal. Provider notified and orders received to increase Risperdal to 2mg BID. Patient is med compliant. Retires to bed around 2229. Comes back out at 0020 stating "I'm faking it. I just put on a show to make people think I have a mental illness. I'm the devil." This nurse talks with patient, reinforcing postivie thinking. Patient returns to bed.
[2020-01-21 20:07] VITALS: BP 145/83
[2020-01-22 07:40] VITALS: BP 133/65
[2020-01-22 09:01] VITALS: BP 133/65
--- NOTE | 2020-01-22 09:09 | NUR ---
ASSUMED CARE THIS MORNING. PT. IN BED ASLEEP WHEN THIS CLUTCH REBUILDER TOOK MORNING MEDICATIONS. HE WAS COOPERATIVE WITH TAKING HIS MORNING MEDICATIONS AND ASSESSMENT. HE GOT UP FOR BREAKFAST. HE CONTINUES TO BE RESPONDING TO INTERNAL STIMULI ALTHOUGH HE REPORTS IT TO BE BETTER. SHE IS UNKEMPT.
--- NOTE | 2020-01-22 19:18 | NUR ---
Care of patient assumed at 1915. Patient is sitting on a couch in the day room. Calm and complliant with assessment. A/O x 4. Reports AH have lessened. HS, LS, BS all WNL. Reports last BM today, 01/22/20. Denies SI/HI. Denies pain. Compliant with HS meds. At 2230 patient is still awake in the day room. Endorses difficulty "winding down" and agress to try available Trazodone PRN. PRN administered and patient is encourage to lie down and allow the medication to take effect. Patient retires to bed at 2234.
[2020-01-22 19:28] VITALS: BP 149/82
[2020-01-23 07:48] VITALS: BP 165/87
[2020-01-23 09:00] VITALS: BP 166/87
--- NOTE | 2020-01-23 09:41 | NUR ---
0935 RESUMMED CARE FROM OVERNIGHT SHIFT THIS AM, PATIENT IN ROOM SLEEP. I AROUSED THE PATIENT AND GOT HIM UP FOR BREAKFAST. PATIENT ATE TOOK MEDICATION WITHOUT INCIDENCE. I GAVE PATIENT A INVEGA INJECTION AT 0930 IN LEFT BUTTOCK. PATIENT DENIES SI/HI/VH BUT STILL HAS AH TELLING HIM TO TAKE HIS CLOTHER OFF. PATIENTS ABDOMEN SOFT BOWEL SOUNDS PRESENT LUNGS CLEAR PATIENT ALERT AND ORIENTED TIMES 4. PATIENT HAS NOT DISPLAYED ANY BEHAVIORS PROBLEMS AT PRESENT WILL CONTINUE TO MONITOR PATIENT FR SAFETY AND BEHAVIORS.
--- NOTE | 2020-01-23 19:24 | NUR ---
Care of patient assumed at 1915. Patient is sitting at a table in the day room. Pleasant and cooperative with assessment. Affect remains flat. Reports AH still come and go, but have decreased somewhat. Tremors appear to have increased. Denies SI/HI. Denies pain. A/O x 4. Requests to shave. This nurse uses unit electric razor to facilitate this. Patient returns to day room and watches TV until 2300, then retires to bed. Discharge is planned for tomorrow.
[2020-01-23 19:31] VITALS: BP 151/79
[2020-01-24 07:16] VITALS: BP 159/85
[2020-01-24 09:04] VITALS: BP 159/85
[2020-01-24] MEDS ORDERED: NORVASC10 MG PO (09:31)
[2020-01-24] MEDS ORDERED: RISPERDAL 1 MG T1 MG PO ×2 (09:32)
[2020-01-24] MEDS ORDERED: RISPERDAL2 MG PO (09:32)
[2020-01-24] MEDS ORDERED: BENZTROPINE MES1 MG PO (09:33)
[2020-01-24 10:02] VITALS: BP 159/85
--- NOTE | 2020-01-24 10:16 | NUR ---
1000 RESUMMED CARE FROM OVERNIGHT SHIFT THIS AM, PATIENT IN BED SLEEP. I WOKE PATIENT UP TO DO ASSESSMENT AND GET HIM READY FOR BREAKFAST. PATIENTS ABDOMEN SOFT ROUND BOWEL SOUNDS PRESENT PATIENTS LUNGS CLEAR. PATIENT DENIES SI/HI/AH/VH AT PRESENT. PATIENT CALM COOPERATIVE WHEN PATIENT WAS TOLD HE WAS DISCHARGING. PATIENT CAME TO ME AND SAID HE COULD NOT LEAVE TODAY BECAUSE HE HAD A VOICE "THAT TOLD HIM TO TAKE OFF HIS CLOTHES". I LET DR DANIELS KNOW AND HE TOLD ME THAT THE PATIENT WILL DISCHARGE. I CALLED [employer] TO [employer] IN [place], [place] TO RENAN THE PHARMACIST; PHONE NUMBER [phone]. WILL CONTINUE TO MONITOR PATIENT FOR SAFETY AND BEHAVIORS.
--- NOTE | 2020-01-24 10:53 | NUR ---
RANDALL contacted Pt returned case inspector, Otoniel Yan [phone]. However was unable to make contact. RANDALL left a VM informing of Pt's discharge and requested CM to see Pt next day after discharge.
--- NOTE | 2020-01-24 11:28 | NUR ---
RANDALL provided Pt with additional discharge information sheet which provided Follow up appointment: Dr. Gould 02/04/2020 @ 11:40am Behavioral Services Tech info: Otoniel Yan [phone] National Suicide Prevention hotline number [facility] general information Pt was will be transported to [facility] address via [facility]. Pt had no other question or concerns for SW.
== END 2020-01-24 11:35 | disposition home or self-care (01) | DRG 885 ==
LOC: SBH
PROVIDERS: ADMIT Psychiatry & Neurology Psychiatry; ATTEND Psychiatry & Neurology Psychiatry
DX: F20.9 Schizophrenia, unspecified (principal); I10 Essential (primary) hypertension; E78.5 Hyperlipidemia, unspecified; F29 Unspecified psychosis not due to a substance or known physiological condition; Z91.14 Patient's other noncompliance with medication regimen; Z79.899 Other long term (current) drug therapy
CPT/HCPCS: 10880